=== PATIENT | female | born 1955 | race Caucasian/White ===

== ENCOUNTER 2018-11-09 14:27 | Emergency (ER) | payer MEDICAID ==
[2018-11-09] MEDS ORDERED: Sodium Chloride 0.9% 10 ML Syringe FLUSH PRN ×2 (14:51)
--- NOTE | 2018-11-09 14:57 | EDM.PDOC ---
ED HPI GENERAL MEDICAL PROBLEM - General Chief Complaint: Neuro Symptoms/Deficits Stated Complaint: VIA [facility] Time Seen by Provider: 11/09/18 14:45 Source of Information: Reports: Patient, Family, RN Notes Reviewed History Limitations: Reports: No Limitations - History of Present Illness INITIAL COMMENTS - FREE TEXT/NARRATIVE: 63-year-old female presents emergency department today following seizure-like activity, she does have a known history of lung cancer family states without metastases has completed 1 chemotherapy cycle and is currently going through radiation treatment. She was in [place] today for chemotherapy treatment and is returning home riding in the vehicle granddaughter noticed her making noise in the back seat was able to see her staring into space head tilted arm stiff and flexed lasted approximately 5 minutes she did head well puller EMS services were called by the time he arrived they felt the patient was post ictal like somewhat confused she is starting to come around and answer questions appropriately. Family states did have image studies done with the initial diagnosis however no other image studies have been done on the head cents, has had PET scans which described no metastases per patient - Related Data Allergies Allergy/AdvReac Type Severity Reaction Status Date / Time No Known Allergies Allergy Verified 08/09/18 08:15 Home Meds: Home Meds ARIPiprazole [Abilify] 30 mg PO DAILY 09/19/16 [History] Citalopram Hydrobromide [Celexa] 40 mg PO DAILY 09/19/16 [History] Ranitidine HCl [Zantac] 150 mg PO BID 09/19/16 [History] Aspirin 81 mg PO DAILY 11/09/18 [History] DULoxetine [Cymbalta] 120 mg PO DAILY 11/09/18 [History] Lisinopril 20 mg PO DAILY 11/09/18 [History] Melatonin 10 mg PO DAILY 11/09/18 [History] Mirtazapine [Remeron] 30 mg PO BEDTIME 11/09/18 [History] atorvaSTATin [Lipitor] 40 mg PO DAILY 11/09/18 [History] Past Medical History HEENT History: Reports: Impaired Vision Cardiovascular History: Reports: Hypertension Respiratory History: Reports: COPD Gastrointestinal History: Reports: Colon Polyp, GERD 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 (See Below) 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 History: vaginal cyst removed Musculoskeletal History: Reports: Fibromyalgia Psychiatric History: Reports: Depression - Infectious Disease History Infectious Disease History: Reports: Chicken Pox - Past Surgical History Cardiovascular Surgical History: Reports: None Respiratory Surgical History: Reports: None Female Surgical History: Reports: Breast Biopsy Musculoskeletal Surgical History: Reports: None Oncologic Surgical History: Reports: Biopsy of Breast, Lumpectomy Social & Family History - Tobacco Use Smoking Status *Q: Current Every Day Smoker Years of Tobacco use: 40 Packs/Tins Daily: 0.5 - Caffeine Use Caffeine Use: Reports: Coffee, Soda, Tea - Recreational Drug Use Recreational Drug Use: No ED ROS GENERAL - Review of Systems Review Of Systems: See Below Constitutional: Reports: Weakness, Weight Loss HEENT: Reports: No Symptoms Respiratory: Reports: No Symptoms Cardiovascular: Reports: No Symptoms GI/Abdominal: Reports: No Symptoms : Reports: No Symptoms Musculoskeletal: Reports: No Symptoms Skin: Reports: No Symptoms Neurological: Reports: Seizure (Seizure-like activity) ED EXAM, NEURO - Physical Exam Exam: See Below Text/Narrative:: General: Female, post ictal like but not in any distress, HEENT: head is atraumatic normocephalic, eyes pupils equal round reactive to light, sclera clear no conjunctivitis appreciated extraocular eye movements intact. Ears tympanic membranes clear and padilla landmarks and light reflex are present bilaterally canals are clear. Nose no septal deviation, nares are clear, no blood present. Mouth mucosa is moist and pink no erythema or exudate noted in soft palate, tongue is midline uvula is midline, dentition is intact. Neck: Supple no thyromegaly no tracheal deviation. Nodes: Cervical nodes subclavicular nodes nontender no palpable lymphadenopathy noted. Lungs: Breath sounds are distant on appreciate any adventitious noises CV: Regular rate and rhythm S1 and S2 appreciated no murmurs rubs or gallops noted. Abdomen: Soft, nontender, no palpable masses or organomegaly appreciated, no distention no guarding bowel sounds are present, . Neuro: Cranial nerves II through XII intact, GCS of 15, no focal neurologic deficit Skin: Warm and dry, intact Extremities: No lower extremity edema appreciated, Course - Vital Signs Last Recorded V/S: Last Vital Signs Temp 98.5 F 11/09/18 14:35 Pulse 70 11/09/18 16:52 Resp 20 11/09/18 16:52 BP 149/99 H 11/09/18 16:52 Pulse Ox 95 11/09/18 16:52 - Orders/Labs/Meds Orders: Active Orders 24 hr Category Date Time Status Peripheral IV Care [RC] . DIRECTED Care 11/09/18 14:52 Active Head wo Cont [CT] Urgent Exams 11/09/18 14:51 Taken UA W/MICROSCOPIC [URIN] Urgent Lab 11/09/18 14:51 Ordered Lactated Ringers [Ringers, Lactated] 1,000 ml Med 11/09/18 16:17 Active IV BOLUS Sodium Chloride 0.9% [Saline Flush] Med 11/09/18 14:51 Active 10 ml FLUSH ASDIRECTED PRN Sodium Chloride 0.9% [Saline Flush] Med 11/09/18 14:51 Active 10 ml FLUSH ASDIRECTED PRN Peripheral IV Insertion Adult [OM.PC] Urgent Oth 11/09/18 14:51 Ordered Medication Orders Lactated Ringer's (Ringers, Lactated) 1,000 mls @ 500 mls/hr IV BOLUS ONE Stop: 11/09/18 18:16 Last Admin: 11/09/18 16:23 Dose: 500 mls/hr Sodium Chloride (Saline Flush) 10 ml FLUSH ASDIRECTED PRN PRN Reason: Keep Vein Open Last Admin: 11/09/18 15:36 Dose: 10 ml Sodium Chloride (Saline Flush) 10 ml FLUSH ASDIRECTED PRN PRN Reason: Keep Vein Open Last Admin: 11/09/18 15:56 Dose: 10 ml Labs: Laboratory Tests 11/09/18 11/09/18 11/09/18 Range/Units 14:51 14:51 14:51 WBC 2.5 L (4.5-11.0) K/uL RBC 3.78 (3.30-5.50) M/uL Hgb 11.0 L D (12.0-15.0) g/dL Hct 32.7 L (36.0-48.0) % MCV 87 (80-98) fL MCH 29 (27-31) pg MCHC 34 (32-36) % Plt Count 115 L (150-400) K/uL Add Manual Diff Yes Neutrophils % (Manual) 84 H (36-66) % Band Neutrophils % 11 (5-11) % Lymphocytes % (Manual) 2 L (24-44) % Monocytes % (Manual) 3 (2-6) % Sodium 129 L (140-148) mmol/L Potassium 4.0 (3.6-5.2) mmol/L Chloride 91 L (100-108) mmol/L Carbon Dioxide 24 (21-32) mmol/L Anion Gap 18.0 H (5.0-14.0) mmol/L BUN 25 H D (7-18) mg/dL Creatinine 1.2 H (0.6-1.0) mg/dL Est Cr Clr Drug Dosing 41.97 mL/min Estimated GFR (MDRD) 46 L (>60) Glucose 192 H (74-106) mg/dL Lactic Acid 2.6 H (0.4-2.0) mmol/L Calcium 8.3 L (8.5-10.1) mg/dL Magnesium 0.8 L (1.8-2.4) mg/dL Total Bilirubin 0.6 (0.2-1.0) mg/dL AST 17 (15-37) U/L ALT 20 (12-78) U/L Alkaline Phosphatase 63 (46-116) U/L Total Protein 6.6 (6.4-8.2) g/dL Albumin 2.7 L (3.4-5.0) g/dL Globulin 3.9 H (2.3-3.5) g/dL Albumin/Globulin Ratio 0.7 L (1.2-2.2) Meds: Medications Generic Name Dose Route Start Last Admin Trade Name Freq PRN Reason Stop Dose Admin Lactated Ringer's 1,000 mls @ 500 mls/hr 11/09/18 16:17 11/09/18 16:23 Ringers, Lactated IV 11/09/18 18:16 500 mls/hr BOLUS ONE Administration Sodium Chloride 10 ml 11/09/18 14:51 11/09/18 15:36 Saline Flush FLUSH 10 ml ASDIRECTED PRN Administration Keep Vein Open Sodium Chloride 10 ml 11/09/18 14:51 11/09/18 15:56 Saline Flush FLUSH 10 ml ASDIRECTED PRN Administration Keep Vein Open Discontinued Medications Generic Name Dose Route Start Last Admin Trade Name Freq PRN Reason Stop Dose Admin Ondansetron HCl 4 mg 11/09/18 15:27 11/09/18 15:33 Zofran IVPUSH 11/09/18 15:28 4 mg ONETIME ONE Administration Departure - Departure Time of Disposition: 17:41 Disposition: DC/Tfer to Acute Hospital 02 Condition: Poor Clinical Impression: Seizure - Discharge Information Referrals: PCP,None [Primary Care Provider] - Forms: ED Department Discharge - My Orders Last 24 Hours: My Active Orders 11/09/18 14:51 Head wo Cont [CT] Urgent UA W/MICROSCOPIC [URIN] Urgent Sodium Chloride 0.9% [Saline Flush] 10 ml FLUSH ASDIRECTED PRN Sodium Chloride 0.9% [Saline Flush] 10 ml FLUSH ASDIRECTED PRN Peripheral IV Insertion Adult [OM.PC] Urgent 11/09/18 14:52 Peripheral IV Care [RC] . DIRECTED 11/09/18 16:17 Lactated Ringers [Ringers, Lactated] 1,000 ml IV BOLUS - Assessment/Plan Last 24 Hours: My Active Orders 11/09/18 14:51 Head wo Cont [CT] Urgent UA W/MICROSCOPIC [URIN] Urgent Sodium Chloride 0.9% [Saline Flush] 10 ml FLUSH ASDIRECTED PRN Sodium Chloride 0.9% [Saline Flush] 10 ml FLUSH ASDIRECTED PRN Peripheral IV Insertion Adult [OM.PC] Urgent 11/09/18 14:52 Peripheral IV Care [RC] . DIRECTED 11/09/18 16:17 Lactated Ringers [Ringers, Lactated] 1,000 ml IV BOLUS Plan: Assessment Acuity = acute Site and laterality = first-time seizure comp came the patient with known history non-small cell lung cancer recently complete related course of chemotherapy of cisplatin and etoposide Etiology = unknown etiology Manifestations = none Location of injury = Home Lab values = WBC low at 2.5 consistent leukopenia, hemoglobin low 11.0 consistent normochromic anemia sodium low at 129 consistent hyponatremia creatinine elevated 1.2 consistent chronic renal failure stage GIII a lactic acid elevated 2.6 consistent lactic acidosis albumin low at 2.[address] scan the head shows no acute process Plan Called discussed case with Dr. Mendoza at [phone] oncologist donor services coordinator at [facility] recommended workup for first-time seizure including MRI unfortunately this is unavailable to us at this time I did discuss case with Dr. Welch hospitalist donor services coordinator at [phone] he kindly accepted the patient in transport will be transported via EMS ground seizure precautions This note was dictated using [employer] voice recognition software please call with any questions on syntax or grammar.
[2018-11-09] MEDS ORDERED: Ondansetron 4 MG/2 ML SDV IVPUSH ONE (15:27)
[2018-11-09] MEDS ORDERED: Lactated Ringers 1,000 ML IV ONE (16:17)
[2018-11-09 16:53] VITALS: BP 149/99
== END 2018-11-09 19:42 ==
LOC: JP.ED 14:27
DX: R56.9 Unspecified convulsions (principal); F17.210 Nicotine dependence, cigarettes, uncomplicated; Z79.899 Other long term (current) drug therapy; Z79.82 Long term (current) use of aspirin
CPT/HCPCS: 36415; 70450; 80053; 81001; 83605; 83735; 85025; 96361; 96374; 99285; J2405; J7120

== ENCOUNTER 2018-11-30 14:54 | Emergency (ER) | payer MEDICAID ==
[2018-11-30] MEDS ORDERED: Magnesium Sulfate/Water 2 GM in Premix Bag 1 BAG IV ONE (15:41)
[2018-11-30] MEDS ORDERED: Magnesium Oxide 400 MG Tab PO ONE (15:44)
--- NOTE | 2018-11-30 15:47 | EDM.PDOC ---
<Jerry Stewart G - Last Filed: 11/30/18 15:42> ED HPI GENERAL MEDICAL PROBLEM - General Chief Complaint: Neurological Problem Stated Complaint: UNUSUAL ACTIVITY Time Seen by Provider: 11/30/18 15:25 Source of Information: Reports: Patient, Old Records, RN History Limitations: Reports: No Limitations - History of Present Illness INITIAL COMMENTS - FREE TEXT/NARRATIVE: 63 yo female was in infusion therapy to get 2 gm of IV magnesium and appeared to be starting to have a seizure so she was brought to the ER. Never did seize, but is here now for this. Magnesium was 1.3. Has had low magnesium in the past. Onset: Today Onset Date: 11/30/18 Duration: Other (uncertain duration of low magnesium) Location: Reports: Generalized Quality: Reports: Other (no pain) Severity: Moderate Improves with: Reports: Other (magnesium) Worsens with: Reports: Other (decreasing magnesium) Context: Reports: Other (See HPI) Associated Symptoms: Reports: Other (appeared to be starting to have a seizure, has had this rxn in the past to low mag) Treatments FARM WORKER: Reports: Other (see below) (none) - Related Data Allergies Allergy/AdvReac Type Severity Reaction Status Date / Time amoxicillin Allergy Severe Hives Verified 11/30/18 15:49 Home Meds: Home Meds Citalopram Hydrobromide [Celexa] 40 mg PO DAILY 09/19/16 [History] Ranitidine HCl [Zantac] 150 mg PO BID 09/19/16 [History] Aspirin 81 mg PO DAILY 11/09/18 [History] DULoxetine [Cymbalta] 120 mg PO DAILY 11/09/18 [History] Lisinopril 20 mg PO DAILY 11/09/18 [History] Melatonin 10 mg PO DAILY 11/09/18 [History] Mirtazapine [Remeron] 30 mg PO BEDTIME 11/09/18 [History] atorvaSTATin [Lipitor] 40 mg PO DAILY 11/09/18 [History] Past Medical History HEENT History: Reports: Impaired Vision Cardiovascular History: Reports: High Cholesterol, Hypertension Respiratory History: Reports: COPD, SOB Gastrointestinal History: Reports: Colon Polyp, GERD 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 History: Reports: , Other (See Below) Other CORDWAINER History: vaginal cyst removed Musculoskeletal History: Reports: Fibromyalgia Neurological History: Reports: Seizure Psychiatric History: Reports: Anxiety, Depression Hematologic History: Reports: B12 Deficiency Oncologic (Cancer) History: Reports: Lung - Infectious Disease History Infectious Disease History: Reports: Chicken Pox, Measles, Mumps, Shingles - Past Surgical History Head Surgeries/Procedures: Reports: None HEENT Surgical History: Reports: None Cardiovascular Surgical History: Reports: None Respiratory Surgical History: Reports: Lung Biopsies GI Surgical History: Reports: Colonoscopy Female Surgical History: Reports: Breast Biopsy Neurological Surgical History: Reports: None Musculoskeletal Surgical History: Reports: None, Carpal Tunnel Oncologic Surgical History: Reports: Biopsy of Breast, Lumpectomy Dermatological Surgical History: Reports: None Social & Family History - Tobacco Use Smoking Status *Q: Current Every Day Smoker Years of Tobacco use: 50 Packs/Tins Daily: 2 Used Tobacco, but Quit: No Second Hand Smoke Exposure: No - Caffeine Use Caffeine Use: Reports: Coffee - Recreational Drug Use Recreational Drug Use: Yes Recreational Drug Type: Reports: Marijuana/Hashish Recreational Drug Use Frequency: Rarely ED ROS GENERAL - Review of Systems Review Of Systems: See Below Constitutional: Reports: No Symptoms HEENT: Reports: No Symptoms Respiratory: Reports: No Symptoms Cardiovascular: Reports: No Symptoms GI/Abdominal: Reports: No Symptoms : Reports: No Symptoms Musculoskeletal: Reports: No Symptoms Skin: Reports: No Symptoms Neurological: Reports: Seizure (? looked like she may have a seizure, witnessed by staff at infusion therapy.) Psychiatric: Reports: No Symptoms ED EXAM, NEURO - Physical Exam Exam: See Below Exam Limited By: No Limitations General Appearance: Alert, WD/WN, No Apparent Distress Eye Exam: Bilateral Eye: Normal Inspection Ears: Normal External Exam, Normal Canal, Hearing Grossly Normal Nose: Normal Inspection, Normal Mucosa, No Blood Throat/Mouth: Normal Inspection, Normal Lips, Normal Oropharynx, Normal Voice, No Airway Compromise Head Exam: Atraumatic, Normocephalic Neck: Normal Inspection, Supple Respiratory/Chest: No Respiratory Distress, Lungs Clear, Normal Breath Sounds, No Accessory Muscle Use Cardiovascular: Regular Rate, Rhythm, No Edema GI/Abdominal: Normal Bowel Sounds Neurological: Alert, Normal Mood/Affect, CN II-XII Intact, No Motor/Sensory Deficits, Oriented x 3 Back Exam: Normal Inspection Extremities: Normal Inspection, Normal Range of Motion, Non-Tender, No Pedal Edema Psychiatric: Normal Affect, Normal Mood Skin Exam: Warm, Dry, Intact, Normal Color, No Rash Course - Vital Signs Last Recorded V/S: Last Vital Signs Temp 97.4 F 11/30/18 15:23 Pulse 68 11/30/18 16:47 Resp 16 11/30/18 16:47 BP 96/68 11/30/18 16:47 Pulse Ox 95 11/30/18 16:47 - Orders/Labs/Meds Meds: Medications Discontinued Medications Generic Name Dose Route Start Last Admin Trade Name Sneha PRN Reason Stop Dose Admin Magnesium Sulfate 2 gm/ Premix 50 mls @ 12.5 mls/hr 11/30/18 15:41 11/30/18 16:07 IV 11/30/18 19:40 12.5 mls/hr ONETIME ONE Administration Magnesium Oxide 400 mg 11/30/18 15:44 11/30/18 16:03 Magnesium Oxide PO 11/30/18 15:45 400 mg ONETIME ONE Administration Departure - Departure Disposition: Home, Self-Care 01 Condition: Fair Clinical Impression: Hypomagnesemia - Discharge Information Instructions: Hypomagnesemia Referrals: PCP,None [Primary Care Provider] - Forms: ED Department Discharge Care Plan Goals: Follow up as scheduled. <Brian Rivas - Last Filed: 11/30/18 19:18> Departure - Departure Time of Disposition: 18:47
[2018-11-30 17:09] VITALS: BP 96/68
== END 2018-11-30 18:47 | disposition home or self-care (01) ==
LOC: JP.ED 14:54
DX: E83.42 Hypomagnesemia (principal); I10 Essential (primary) hypertension; E78.00 Pure hypercholesterolemia, unspecified; J44.9 Chronic obstructive pulmonary disease, unspecified; K21.9 Gastro-esophageal reflux disease without esophagitis; F41.9 Anxiety disorder, unspecified; F32.9 Major depressive disorder, single episode, unspecified; Z79.82 Long term (current) use of aspirin; Z79.899 Other long term (current) drug therapy; Z88.1 Allergy status to other antibiotic agents
CPT/HCPCS: 96365; 96366; 99284; A9270; J3475

== ENCOUNTER 2018-12-20 07:28 | Day surgery (SDC) | payer MEDICAID ==
[~2018-12-20 07:28] MED LIST: Midazolam 1 MG/ML 2 ML SDV ONE; Propofol 200 MG/20 ML SDV ONE; fentaNYL 100 MCG/2 ML SDV ONE
[2018-12-20] MEDS ORDERED: Sodium Chloride 0.9% 1,000 ML IV SCH (08:00)
[2018-12-20] MEDS ORDERED: ceFAZolin 1 GM in Premix Bag 1 BAG IV ONE (08:30)
[2018-12-20] MEDS ORDERED: ceFAZolin 2 GM in Premix Bag 1 BAG IV ONE (08:30)
[2018-12-20] MEDS ORDERED: Lidocaine 1% with EPINEPHrine 1:100,000 50 ML MDV ONE (08:47)
[2018-12-20] MEDS ORDERED: Bupivacaine 0.5% 50 ML MDV ONE (08:47)
[2018-12-20] MEDS ORDERED: Propofol 200 MG/20 ML SDV ONE (08:50)
[2018-12-20 09:58] VITALS: BP 97/60
--- NOTE | 2018-12-20 15:16 | OR ---
DATE OF PROCEDURE: 12/20/2018 PROCEDURE: Port-A-Cath placement, right internal jugular vein, tunneled. COMPLICATIONS: None. SURGEON: Bulmaro Whitehead MD MAKING LINE WORKER: None. ANESTHESIA: MAC/local. INDICATION: Lung malignancy. RISKS: Risks, benefits, alternatives, and limitations including, but not limited to infection, bleeding, perforation, and pneumothorax were explained to the patient, who wished to proceed. PROCEDURE IN DETAIL: The patient was placed in supine position. The subclavian vein on the right side was attempted to be accessed with a single pass. Due to the lack of ease of access, this was immediately changed to a jugular vein access. The ultrasound was used to access the internal jugular vein on the right. This was accessed on the first pass. A wire was then placed. Mild ectopy was noted. The wire was pulled back. A pocket was then created on the right side, approximately 2 cm below the clavicle. This was anesthetized with lidocaine. A 15 blade was used to make a skin incision, and this was dissected using Metzenbaum scissors. The tunneler was then used to pass the tubing from the port site to the needlestick site. The dilator was then used. The jugular vein was then accessed, and the tubing was then placed into the superior vena cava. This was sized using fluoro. This was then secured to the port. This was checked with the Laura needle, flushed and was able to be drawn back. This was then sewed in three places into the subcutaneous tissues. 3-0 Vicryl was used to close over this and then 4-0 Vicryl. Then, this was reaccessed again with the Laura needle and was noted to be intact and functioning well. The patient tolerated the procedure well. Bulmaro Whitehead MD /[id number]
== END 2018-12-20 10:55 | disposition home or self-care (01) ==
LOC: JP.SDS 07:28
PROVIDERS: ATTEND Surgery
DX: C34.92 Malignant neoplasm of unspecified part of left bronchus or lung (principal); I10 Essential (primary) hypertension; J44.9 Chronic obstructive pulmonary disease, unspecified; F17.210 Nicotine dependence, cigarettes, uncomplicated; F33.0 Major depressive disorder, recurrent, mild; F41.9 Anxiety disorder, unspecified; M79.7 Fibromyalgia; E78.5 Hyperlipidemia, unspecified; K21.9 Gastro-esophageal reflux disease without esophagitis; Z79.899 Other long term (current) drug therapy; Z88.1 Allergy status to other antibiotic agents
CPT/HCPCS: 36561; C1788; C1894; J0690; J1642; J2250; J2704; J3010; J3490; J7030

== ENCOUNTER 2021-04-10 15:53 | Emergency (ER) | payer MEDICAID ==
[2021-04-10] MEDS ORDERED: Sodium Chloride 0.9% 10 ML Syringe FLUSH PRN (16:32)
--- NOTE | 2021-04-10 16:33 | EDM.PDOC ---
ED HPI GENERAL MEDICAL PROBLEM - General Chief Complaint: General Stated Complaint: CANCER PT/ LETHARGIC/ MEMORY LOSS / DIZZY Time Seen by Provider: 04/10/21 16:30 Source of Information: Reports: Patient, RN History Limitations: Reports: No Limitations, Other (tearful due to loss of recent memory (about 4-5 weeks) ) - History of Present Illness INITIAL COMMENTS - FREE TEXT/NARRATIVE: Halle is a 65 year old femalre brought to ER by family due to concerns regarding increased fatigue and memory loss. Halle recently moved into a new home middle of February. Halle's last memory is moving boxes into the new home. Halle reports that she has been sleeping on and off since Monday. Patient was recently diagnosed with lung cancer and completed her therapy she is no longer receiving chemotherapy or radiation. Halle reports she does not recall moving into her new home or doing any other landscaping or decorating that has been accomplished the last month. Halle is very tearful regarding this loss of memory over the course of the last month. Halle has no significant complaints at this point in time. She denies fever, chills, headache, shortness of breath is not new worse or different, urinary symptoms, slight loose stools which is not new. Halle denies any rashes or sores to skin. She otherwise feels fine and does not feel fatigued. Halle is reported to have slept and performed very little activity since Monday until this afternoon when she awoke with loss of recent memory. - Related Data Allergies Allergy/AdvReac Type Severity Reaction Status Date / Time amoxicillin Allergy Severe Hives Verified 04/10/21 16:12 Home Meds: Home Meds Ranitidine HCl [Zantac] 150 mg PO BID 09/19/16 [History] DULoxetine [Cymbalta] 30 mg PO DAILY 11/09/18 [History] Melatonin 10 mg PO DAILY 11/09/18 [History] Albuterol [Proventil HFA] 2 puff INH Q4H PRN 12/18/18 [History] Ergocalciferol (Vitamin D2) [Vitamin D2] 50,000 units PO Q7D 12/18/18 [History] Cyanocobalamin (Vitamin B-12) [Vitamin B-12] 1,000 mcg PO DAILY 04/10/21 [History] Famotidine 40 mg PO DAILY 04/10/21 [History] Gabapentin [Neurontin] 300 mg PO BEDTIME 04/10/21 [History] Pramipexole [Mirapex] 0.5 mg PO DAILY 04/10/21 [History] tiZANidine [Zanaflex] 4 mg PO DAILY 04/10/21 [History] Past Medical History HEENT History: Reports: Impaired Vision Cardiovascular History: Reports: High Cholesterol, Hypertension Respiratory History: Reports: COPD, SOB Gastrointestinal History: Reports: Colon Polyp, GERD Genitourinary History: Reports: None 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 HANGER SUPERVISOR 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: Reports: , Other (See Below) Other SIGN HANGER SUPERVISOR History: vaginal cyst removed Musculoskeletal History: Reports: Fibromyalgia Neurological History: Reports: Seizure Psychiatric History: Reports: Anxiety, Depression Endocrine/Metabolic History: Reports: None Hematologic History: Reports: B12 Deficiency Oncologic (Cancer) History: Reports: Lung Dermatologic History: Reports: None - Infectious Disease History Infectious Disease History: Reports: Chicken Pox, Measles, Mumps, Shingles, Other (See Below) Other Infectious Disease History: polio - Past Surgical History Head Surgeries/Procedures: Reports: None HEENT Surgical History: Reports: None Cardiovascular Surgical History: Reports: None Respiratory Surgical History: Reports: Lung Biopsies GI Surgical History: Reports: Colonoscopy Female Surgical History: Reports: Breast Biopsy Neurological Surgical History: Reports: None Musculoskeletal Surgical History: Reports: None, Carpal Tunnel Oncologic Surgical History: Reports: Biopsy of Breast, Lumpectomy Dermatological Surgical History: Reports: None Social & Family History - Family History Family Medical History: No Pertinent Family History - Tobacco Use Tobacco Use Status *Q: Current Every Day Tobacco User Years of Tobacco use: 48 Packs/Tins Daily: 1.5 - Caffeine Use Caffeine Use: Reports: Coffee - Recreational Drug Use Recreational Drug Use: No ED ROS GENERAL - Review of Systems Review Of Systems: Comprehensive ROS is negative, except as noted in HPI. Reason Not Obtained: but loss of recent memory ED EXAM, GENERAL - Physical Exam Exam: See Below Exam Limited By: No Limitations (memory loss) General Appearance: Alert, Mild Distress (due to memory loss and fear of cause), Thin, Other Eye Exam: Bilateral Eye: EOMI, Normal Inspection, PERRL Ears: Normal External Exam, Hearing Grossly Normal Nose: Normal Inspection Throat/Mouth: Normal Voice, No Airway Compromise Neck: Normal Inspection Respiratory/Chest: No Respiratory Distress Cardiovascular: Normal Peripheral Pulses Course - Vital Signs Last Recorded V/S: Last Vital Signs Temp 36.3 C 04/10/21 16:11 Pulse 67 04/10/21 16:30 Resp 18 04/10/21 16:30 BP 132/77 04/10/21 16:30 Pulse Ox 96 04/10/21 16:30 - Orders/Labs/Meds Orders: Active Orders 24 hr Category Date Time Status Implanted Port Access [RC] QSHIFT Care 04/10/21 16:47 Active Peripheral IV Care [RC] . DIRECTED Care 04/10/21 16:32 Active CULTURE BLOOD [BC] Stat Lab 04/10/21 16:50 Received CULTURE URINE [RM] Stat Lab 04/10/21 17:50 Received TSH ULTRASENSITIVE [CHEM] Stat Lab 04/10/21 18:04 Ordered Lactated Ringers [Ringers, Lactated] 1,000 ml Med 04/10/21 17:30 Active IV BOLUS Lactated Ringers [Ringers, Lactated] 1,000 ml Med 04/10/21 18:00 Active IV BOLUS Sodium Chloride 0.9% [Saline Flush] Med 04/10/21 16:32 Active 10 ml FLUSH ASDIRECTED PRN Peripheral IV Insertion Adult [OM.PC] Urgent Oth 04/10/21 16:32 Ordered Medication Orders Lactated Ringer's (Ringers, Lactated) 1,000 mls @ 1,000 mls/hr IV BOLUS KAMALA Last Admin: 04/10/21 17:25 Dose: 1,000 mls/hr Documented by: PREILOR Lactated Ringer's (Ringers, Lactated) 1,000 mls @ 1,000 mls/hr IV BOLUS KAMALA Sodium Chloride (Sodium Chloride 0.9% 10 Ml Syringe) 10 ml FLUSH ASDIRECTED PRN PRN Reason: Keep Vein Open Last Admin: 04/10/21 17:25 Dose: 10 ml Documented by: PREILOR Labs: Laboratory Tests 04/10/21 04/10/21 04/10/21 Range/Units 16:50 16:50 16:50 WBC 7.9 (4.5-11.0) K/uL RBC 5.23 (3.30-5.50) M/uL Hgb 15.2 H D (12.0-15.0) g/dL Hct 45.8 (36.0-48.0) % MCV 88 (80-98) fL MCH 29 (27-31) pg MCHC 33 (32-36) % Plt Count 193 (150-400) K/uL Neut % (Auto) 72.7 H (36-66) % Lymph % (Auto) 16.9 L (24-44) % [place] % (Auto) 9.9 H (2-6) % Eos % (Auto) 0.4 L (2-4) % Baso % (Auto) 0.1 (0-1) % Sodium 138 L (140-148) mmol/L Potassium 3.5 L (3.6-5.2) mmol/L Chloride 99 L (100-108) mmol/L Carbon Dioxide 26 (21-32) mmol/L Anion Gap 16.5 H (5.0-14.0) mmol/L BUN 51 H D (7-18) mg/dL Creatinine 1.7 H D (0.6-1.0) mg/dL Est Cr Clr Drug Dosing 28.87 mL/min Estimated GFR (MDRD) 30 L (>60) Glucose 110 H (74-106) mg/dL Lactic Acid (0.4-2.0) mmol/L Calcium 9.1 (8.5-10.1) mg/dL Magnesium 1.9 (1.8-2.4) mg/dL Total Bilirubin 0.5 D (0.2-1.0) mg/dL AST 36 D (15-37) U/L ALT 26 D (12-78) U/L Alkaline Phosphatase 86 (46-116) U/L Ammonia (11-32) umol/L Total Protein 7.1 (6.4-8.2) g/dL Albumin 3.7 (3.4-5.0) g/dL Globulin 3.4 (2.3-3.5) g/dL Albumin/Globulin Ratio 1.1 L (1.2-2.2) Urine Color (YELLOW) Urine Appearance (CLEAR) Urine pH (5.0-8.0) Ur Specific [place] (1.008-1.030) Urine Protein (NEGATIVE) mg/dL Urine Glucose (UA) (NEGATIVE) mg/dL Urine Ketones (NEGATIVE) mg/dL Urine Occult Blood (NEGATIVE) Urine Nitrite (NEGATIVE) Urine Bilirubin (NEGATIVE) Urine Urobilinogen (0.2-1.0) EU/dL Ur Leukocyte Esterase (NEGATIVE) Urine RBC (0-5) Urine WBC (0-5) Ur Epithelial Cells Amorphous Sediment Urine Bacteria Urine Mucus Urine Other 04/10/21 04/10/21 04/10/21 Range/Units 16:50 16:50 17:10 WBC (4.5-11.0) K/uL RBC (3.30-5.50) M/uL Hgb (12.0-15.0) g/dL Hct (36.0-48.0) % MCV (80-98) fL MCH (27-31) pg MCHC (32-36) % Plt Count (150-400) K/uL Neut % (Auto) (36-66) % Lymph % (Auto) (24-44) % [place] % (Auto) (2-6) % Eos % (Auto) (2-4) % Baso % (Auto) (0-1) % Sodium (140-148) mmol/L Potassium (3.6-5.2) mmol/L Chloride (100-108) mmol/L Carbon Dioxide (21-32) mmol/L Anion Gap (5.0-14.0) mmol/L BUN (7-18) mg/dL Creatinine (0.6-1.0) mg/dL Est Cr Clr Drug Dosing mL/min Estimated GFR (MDRD) (>60) Glucose (74-106) mg/dL Lactic Acid 0.8 (0.4-2.0) mmol/L Calcium (8.5-10.1) mg/dL Magnesium (1.8-2.4) mg/dL Total Bilirubin (0.2-1.0) mg/dL AST (15-37) U/L ALT (12-78) U/L Alkaline Phosphatase (46-116) U/L Ammonia < 17 (11-32) umol/L Total Protein (6.4-8.2) g/dL Albumin (3.4-5.0) g/dL Globulin (2.3-3.5) g/dL Albumin/Globulin Ratio (1.2-2.2) Urine Color Yellow (YELLOW) Urine Appearance Cloudy A (CLEAR) Urine pH 5.0 (5.0-8.0) Ur Specific [place] >= 1.030 (1.008-1.030) Urine Protein 30 H (NEGATIVE) mg/dL Urine Glucose (UA) Negative (NEGATIVE) mg/dL Urine Ketones Negative (NEGATIVE) mg/dL Urine Occult Blood Negative (NEGATIVE) Urine Nitrite Negative (NEGATIVE) Urine Bilirubin Small H (NEGATIVE) Urine Urobilinogen 0.2 (0.2-1.0) EU/dL Ur Leukocyte Esterase Small H (NEGATIVE) Urine RBC 0-5 (0-5) Urine WBC 0-5 (0-5) Ur Epithelial Cells Few Amorphous Sediment Occasional Urine Bacteria Few Urine Mucus Occasional Urine Other See note Meds: Medications Generic Name Dose Route Start Last Admin Trade Name Freq PRN Reason Stop Dose Admin Lactated Ringer's 1,000 mls @ 1,000 mls/hr 04/10/21 17:30 04/10/21 17:25 Ringers, Lactated IV 1,000 mls/hr BOLUS KAMALA Administration Lactated Ringer's 1,000 mls @ 1,000 mls/hr 04/10/21 18:00 Ringers, Lactated IV BOLUS KAMALA Sodium Chloride 10 ml 04/10/21 16:32 04/10/21 17:25 Sodium Chloride 0.9% 10 Ml Syringe FLUSH 10 ml ASDIRECTED PRN Administration Keep Vein Open - Radiology Interpretation Free Text/Narrative:: CT Head: No acute intracranial bleed, lesions or mass noted. Images read by myself and discussed with patient sooner after images available. Radiology report reviewed nothing no acute changes or concerns. - Re-Assessments/Exams Free Text/Narrative Re-Assessment/Exam: Spoke with ER MD regarding patient presentation and concerns regarding (1 month) memory loss today without any additional acute concerns. 04/10/21 18:06 Called [facility] to consult Neurology, Dr Yeung reducing salon attendant. No additional acute testing recommended at this time. Outpatient evaluation with PCP to see if memory still missing for the last months and possible MRI. Vitamin deficiency discussed Vitamin B12, patient is on supplement per EMR. No significant acute neurologist process, stroke, seizure or transient global amnesia does not fit with presenting concerns. 04/10/21 18:26 Discussed Radiology reports and blood test results concerning for dehydration and anion gap but no significant specific electrolyte abnormality noted. Discharge home rest, sleep tonight with follow up in the next 1-2 weeks for evaluation possible outpatient MRI. Departure - Departure Time of Disposition: 18:29 Disposition: DC/Tfer to Medicaid [facility] Clinical Impression: Memory loss, Dehydration - Discharge Information Referrals: Pa Cao NP [Primary Care Provider] - Forms: ED Department Discharge Additional Instructions: Discussed Radiology reports and blood test results concerning for dehydration and anion gap but no significant specific electrolyte abnormality noted. Discharge home rest, sleep tonight with follow up in the next 1-2 weeks for evaluation possible outpatient MRI. Sepsis Event Note (ED) - Evaluation Sepsis Screening Result: No Definite Risk - Focused Exam Vital Signs: Vital Signs Temp Pulse Resp BP Pulse Ox 04/10/21 16:30 67 18 132/77 96 04/10/21 16:11 36.3 C 75 18 134/80 93 L 04/10/21 16:05 36.3 C 75 18 134/80 93 L - My Orders Last 24 Hours: My Active Orders 04/10/21 16:32 Peripheral IV Care [RC] . DIRECTED Sodium Chloride 0.9% [Saline Flush] 10 ml FLUSH ASDIRECTED PRN Peripheral IV Insertion Adult [OM.PC] Urgent 04/10/21 16:47 Implanted Port Access [RC] QSHIFT 04/10/21 16:50 CULTURE BLOOD [BC] Stat 04/10/21 17:30 Lactated Ringers [Ringers, Lactated] 1,000 ml IV BOLUS 04/10/21 17:50 CULTURE URINE [RM] Stat 04/10/21 18:00 Lactated Ringers [Ringers, Lactated] 1,000 ml IV BOLUS 04/10/21 18:04 TSH ULTRASENSITIVE [CHEM] Stat - Assessment/Plan Last 24 Hours: My Active Orders 04/10/21 16:32 Peripheral IV Care [RC] . DIRECTED Sodium Chloride 0.9% [Saline Flush] 10 ml FLUSH ASDIRECTED PRN Peripheral IV Insertion Adult [OM.PC] Urgent 04/10/21 16:47 Implanted Port Access [RC] QSHIFT 04/10/21 16:50 CULTURE BLOOD [BC] Stat 04/10/21 17:30 Lactated Ringers [Ringers, Lactated] 1,000 ml IV BOLUS 04/10/21 17:50 CULTURE URINE [RM] Stat 04/10/21 18:00 Lactated Ringers [Ringers, Lactated] 1,000 ml IV BOLUS 04/10/21 18:04 TSH ULTRASENSITIVE [CHEM] Stat
[2021-04-10] MEDS ORDERED: Lactated Ringers 1,000 ML IV SCH ×2 (17:30→18:00)
--- NOTE | 2021-04-10 17:40 | CRLCT ---
For Patients: As a result of the Century Cures Act, medical imaging exams and procedure reports are released immediately into your electronic medical record. You may view this report before your referring provider. If you have questions, please contact your health care provider. HISTORY: Concussion. Headache. COMPARISON: None. TECHNIQUE: Noncontrast axial images were obtained through the brain. FINDINGS: Black-white matter differentiation is preserved. No evidence for acute intracranial hemorrhage or infarction. No midline shift or mass effect. The ventricles and nondilated and symmetric. No abnormal intra or extra-axial fluid collection. The bony calvaria are intact. Visualized paranasal sinuses and mastoid air cells are clear. IMPRESSION: No acute intracranial pathology. Please note that all CT scans at this facility use dose modulation, iterative reconstruction, and/or weight-based dosing when appropriate to reduce radiation dose to as low as reasonably achievable. Dictated by Marcy Ledezma MD @ 04/10/2021 5:38:[address] Marcy Ledezma @ Apr 10 2021 5:38PM
[2021-04-10 18:34] VITALS: BP 133/79; PULSE 61
== END 2021-04-10 18:44 ==
LOC: JP.ED 15:53
DX: R41.3 Other amnesia (principal); E86.0 Dehydration; E78.00 Pure hypercholesterolemia, unspecified; I10 Essential (primary) hypertension; J44.9 Chronic obstructive pulmonary disease, unspecified; Z72.0 Tobacco use; Z88.0 Allergy status to penicillin
CPT/HCPCS: 36415; 70450; 80053; 81001; 82140; 83605; 83735; 84443; 85025; 87040; 87086; 99283; 99284-25; J1642; J7120

== ENCOUNTER 2021-06-01 13:51 | Emergency (ER) | payer MEDICAID ==
[2021-06-01 13:55] VITALS: BP 151/89; PULSE 67
--- NOTE | 2021-06-01 14:42 | EDM.PDOCBH ---
ED HPI GENERAL MEDICAL PROBLEM - General Chief Complaint: Behavioral/Psych Stated Complaint: MEDICAL VIA [place] Time Seen by Provider: 06/01/21 14:30 Source of Information: Reports: Patient, EMS, Family History Limitations: Reports: Physical Impairment, Uncooperative - History of Present Illness INITIAL COMMENTS - FREE TEXT/NARRATIVE: 65-year-old female brought in by ambulance for really unknown reasons, apparently she is lethargic, weak, decreased activity, and the family is concerned that she stopped taking her antidepressants and other medications. Last time I saw her she had small cell lung cancer diagnosed but she is unable to really update me on how that is going. She is holding an emesis bag but not actively vomiting. I asked her why she came in by ambulance and she acted like she did not remember coming in by ambulance. Onset: Unknown/Unsure Duration: Chronic - Related Data Allergies Allergy/AdvReac Type Severity Reaction Status Date / Time amoxicillin Allergy Severe Hives Verified 04/10/21 16:12 Home Meds: Home Meds DULoxetine [Cymbalta] 30 mg PO DAILY 11/09/18 [History] Melatonin 10 mg PO BEDTIME 11/09/18 [History] Albuterol [Proventil HFA] 2 puff INH Q4H PRN 12/18/18 [History] Cyanocobalamin (Vitamin B-12) [Vitamin B-12] 1,000 mcg PO DAILY 04/10/21 [History] Famotidine 40 mg PO BEDTIME 04/10/21 [History] Gabapentin [Neurontin] 300 mg PO BEDTIME 04/10/21 [History] Pramipexole [Mirapex] 0.5 mg PO DAILY 04/10/21 [History] tiZANidine [Zanaflex] 4 mg PO BEDTIME 04/10/21 [History] Cholecalciferol (Vitamin D3) [Vitamin D3] 1 tab PO DAILY 06/01/21 [History] Tiotropium [place] [Spiriva Respimat] 2 puff INH DAILY 06/01/21 [History] hydrOXYzine HCL [Hydroxyzine HCl] 2 tab PO TID PRN 06/01/21 [History] Past Medical History HEENT History: Reports: Impaired Vision Cardiovascular History: Reports: High Cholesterol, Hypertension Respiratory History: Reports: COPD, SOB Gastrointestinal History: Reports: Colon Polyp, GERD Genitourinary History: Reports: None 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: , 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 (See Below) Other VAULT ATTENDANT History: vaginal cyst removed Musculoskeletal History: Reports: Fibromyalgia Neurological History: Reports: Seizure Psychiatric History: Reports: Anxiety, Depression Endocrine/Metabolic History: Reports: None Hematologic History: Reports: B12 Deficiency Oncologic (Cancer) History: Reports: Lung Dermatologic History: Reports: None - Infectious Disease History Infectious Disease History: Reports: Chicken Pox, Measles, Mumps, Shingles, Other (See Below) Other Infectious Disease History: polio - Past Surgical History Head Surgeries/Procedures: Reports: None HEENT Surgical History: Reports: None Cardiovascular Surgical History: Reports: None Respiratory Surgical History: Reports: Lung Biopsies GI Surgical History: Reports: Colonoscopy Female Surgical History: Reports: Breast Biopsy Neurological Surgical History: Reports: None Musculoskeletal Surgical History: Reports: None, Carpal Tunnel Oncologic Surgical History: Reports: Biopsy of Breast, Lumpectomy Dermatological Surgical History: Reports: None Social & Family History - Family History Family Medical History: No Pertinent Family History - Tobacco Use Tobacco Use Status *Q: Unknown Ever Used Tobacco - Caffeine Use Caffeine Use: Reports: Coffee ED ROS GENERAL - Review of Systems Review Of Systems: See Below Constitutional: Reports: Malaise, Decreased Appetite. Denies: Fever, Chills HEENT: Denies: Vision Change Respiratory: Reports: Shortness of Breath (Intermittent shortness of breath), Cough (Chronic mild cough) Cardiovascular: Denies: Chest Pain GI/Abdominal: Reports: Decreased Appetite, Nausea. Denies: Vomiting : Reports: No Symptoms Musculoskeletal: Reports: No Symptoms Skin: Reports: Pallor Neurological: Reports: Confusion. Denies: Headache Psychiatric: Reports: Depression ED EXAM, BEHAVIORAL HEALTH - Physical Exam Exam: See Below Exam Limited By: No Limitations General Appearance: Alert, No Apparent Distress, Other (Patient is in no di stress but is somewhat uncooperative and withdrawn) Eye Exam: Bilateral Eye: Normal Inspection (EOMs are intact, no significant jaundice, good hydration) Head: Atraumatic Neck: Supple, Non-Tender Respiratory/Chest: Other (Deep creased breath sounds in the right upper lobe) Cardiovascular: Regular Rate, Rhythm. No: Tachycardia GI/Abdominal: Soft, Non-Tender Extremities: No: Pedal Edema Neurological: Alert, Disoriented to Time (Not sure what day it is, seems confused about being brought in by the ambulance as well) Psychiatric: Alert, Depressed Mood, Flat Affect COURSE, BEHAVIORAL HEALTH COMP - Course Vital Signs: Last Vital Signs Temp 95.5 F L 06/01/21 14:30 Pulse 67 06/01/21 14:30 Resp 16 06/01/21 14:30 BP 151/89 H 06/01/21 14:30 Pulse Ox 97 06/01/21 14:30 Orders, Labs, Meds: Laboratory Tests 06/01/21 06/01/21 06/01/21 Range/Units 14:40 16:08 16:08 WBC 12.6 H (4.5-11.0) K/uL RBC 5.17 (3.30-5.50) M/uL Hgb 15.0 (12.0-15.0) g/dL Hct 45.1 (36.0-48.0) % MCV 87 (80-98) fL MCH 29 (27-31) pg MCHC 33 (32-36) % Plt Count 181 (150-400) K/uL Neut % (Auto) 92.4 H (36-66) % Lymph % (Auto) 3.9 L (24-44) % [place] % (Auto) 3.6 (2-6) % Eos % (Auto) 0.0 L (2-4) % Baso % (Auto) 0.1 (0-1) % Sodium 138 L (140-148) mmol/L Potassium 4.1 (3.6-5.2) mmol/L Chloride 101 (100-108) mmol/L Carbon Dioxide 28 (21-32) mmol/L Anion Gap 13.1 (5.0-14.0) mmol/L BUN 12 D (7-18) mg/dL Creatinine 1.0 (0.6-1.0) mg/dL Est Cr Clr Drug Dosing 57.33 mL/min Estimated GFR (MDRD) 56 L (>60) Glucose 122 H (74-106) mg/dL Calcium 9.2 (8.5-10.1) mg/dL Total Bilirubin 0.4 (0.2-1.0) mg/dL AST 13 L (15-37) U/L ALT 14 (12-78) U/L Alkaline Phosphatase 94 (46-116) U/L Total Protein 7.1 (6.4-8.2) g/dL Albumin 3.2 L (3.4-5.0) g/dL Globulin 3.9 H (2.3-3.5) g/dL Albumin/Globulin Ratio 0.8 L (1.2-2.2) Urine Color Yellow (YELLOW) Urine Appearance Clear (CLEAR) Urine pH 6.5 (5.0-8.0) Ur Specific [place] >= 1.030 (1.008-1.030) Urine Protein 100 H (NEGATIVE) mg/dL Urine Glucose (UA) Negative (NEGATIVE) mg/dL Urine Ketones Negative (NEGATIVE) mg/dL Urine Occult Blood Trace-intact H (NEGATIVE) Urine Nitrite Negative (NEGATIVE) Urine Bilirubin Negative (NEGATIVE) Urine Urobilinogen 0.2 (0.2-1.0) EU/dL Ur Leukocyte Esterase Negative (NEGATIVE) Urine RBC 0-5 (0-5) Urine WBC 0-5 (0-5) Ur Epithelial Cells Moderate Amorphous Sediment Few Urine Bacteria Rare Urine Mucus Not seen Medications Discontinued Medications Generic Name Dose Route Start Last Admin Trade Name Sneha PRN Reason Stop Dose Admin Gabapentin 300 mg 06/01/21 16:00 06/01/21 16:05 Gabapentin 300 Mg Cap PO 06/01/21 16:01 300 mg ONETIME ONE Administration Re-Assessment/Re-Exam: Head CT was obtained which is negative, initially the patient refused any lab work however when the family arrived she agreed. She initially was not going to let us do the head CT either. The head CT showed no acute changes, she was given 300 mg of oral gabapentin which is the dose she missed this morning which has caused these types of symptoms in the past. The labs returned fairly reassuring, she improved over the course of an hour and a half and was discharged with her family. I tried to emphasize the importance of staying with her medication regimen as prescribed. Departure - Departure Time of Disposition: 17:33 Disposition: Home, Self-Care 01 Clinical Impression: Confusion Medication withdrawal Qualifiers: Substance type: other psychoactive substance Qualified Code(s): F19.939 - Other psychoactive substance use, unspecified with withdrawal, unspecified - Discharge Information Instructions: Confusion Referrals: PCP,None [Primary Care Provider] - Forms: ED Department Discharge Care Plan Goals: It is important that you take your medicines as prescribed, stay hydrated, and return if worsening or concerns. Follow-up with Pa Cao as soon as possible to discuss any changes in medicines that may be beneficial. Sepsis Event Note (ED) - Evaluation Sepsis Screening Result: No Definite Risk
--- NOTE | 2021-06-01 15:33 | CT ---
Head wo Cont CLINICAL HISTORY: Confusion COMPARISON: March 2021 TECHNIQUE: Transverse scans were obtained from the base of the skull through the vertex without IV contrast on a multislice, multidetector CT scanner. Auto dosage reduction and iterative reconstruction techniques employed. FINDINGS: There is some mild asymmetry in the cavernous sinuses being slightly more prominent on the left. This is likely due to slight tilting in the gantry. This does not correlate to findings in the coronal plane.. There is no mass effect, hemorrhage, or extraaxial collection. The basal cisterns and sulci over the convexities are normal. The ventricles are normal for age. IMPRESSION: No acute intracranial process or significant change from prior CT
[2021-06-01] MEDS ORDERED: Gabapentin 300 MG Cap PO ONE (16:00)
== END 2021-06-01 17:33 | disposition home or self-care (01) ==
LOC: JP.ED 13:51
DX: R41.0 Disorientation, unspecified (principal); F19.230 Other psychoactive substance dependence with withdrawal, uncomplicated; E78.00 Pure hypercholesterolemia, unspecified; I10 Essential (primary) hypertension; J44.9 Chronic obstructive pulmonary disease, unspecified; K21.9 Gastro-esophageal reflux disease without esophagitis; Z79.899 Other long term (current) drug therapy; Z88.0 Allergy status to penicillin
CPT/HCPCS: 36415; 70450; 80053; 81001; 85025; 99285; A9270